=== PATIENT | male | born 1955 | race Caucasian/White ===

== ENCOUNTER 2020-09-13 18:53 | Emergency (ER) | payer MEDICARE, SELFPAY ==
[2020-09-13 18:59] VITALS: BP 127/72; PULSE 94; RESP 18; TEMP 36.6; O2SAT 99
--- NOTE | 2020-09-13 19:04 | ED.GENADULT ---
HPI - General Adult General Chief complaint: Upper Respiratory Infection Stated complaint: sinus pressure/long Time Seen by Provider: 09/13/20 19:04 Source: patient and RN notes reviewed Mode of arrival: ambulatory Limitations: no limitations History of Present Illness HPI narrative: 65-year-old male presents to the [facility] with a request to refill his prednisone. His ENT doctor in [place] prescribes him 60 mg daily for 5 days for sinus issues. States it also helps with his fatigue, has chronic fatigue issues and states he is also been referred to an ENT and neurologist. Patient currently has some congestion with a frontal sinus headache. Related Data Allergies Allergy/AdvReac Type Severity Reaction Status Date / Time No Known Allergies Allergy Verified 09/13/20 19:15 Review of Systems Review of Systems: All systems reviewed & are unremarkable except as noted in HPI and below Constitutional: Constitutional: Reports no additional constitutional complaints, Denies chills and Denies fever(s) Eyes: Eyes: Reports no additional eye complaints, Denies change in vision and Denies photophobia ENT: Reports as per HPI and Denies dizziness Comments: Frontal sinus congestion and headache Cardiovascular: Cardiovascular: Reports no additional cardiovascular complaints and Denies chest pain Respiratory: Respiratory: Reports no additional respiratory complaints, Denies chest congestion, Denies cough, Denies dyspnea and Denies wheezing Gastrointestinal: Gastrointestinal: Reports no additional gastrointestinal complaints Musculoskeletal: Musculoskeletal: Reports no additional musculoskeletal complaints Integumentary/Breasts: Skin/Breast: Reports system reviewed and no additional complaints, except as docu Neurologic: Reports system reviewed and no additional complaints, except as documented Psychiatric: Psychiatric: Reports no additional psychiatric complaints Allergic/Immunologic: Allergic/Immunologic: Reports no additional allergic/immunologic complaints PMFSH Comments At the time of my signature, I reviewed and agree with the nursing past medical, surgical, social, and family history. There is no relevant family history pertinent to the patient complaint. Exam Const: General: healthy appearing, no acute distress and alert Nutritional Appearance: well nourished Orientation/consciousness: patient oriented x3 Limitations: no limitations and altered mental status HENMT: Head: normal to inspection and No palpable skull fracture present Ears: hearing grossly normal bilaterally, external ears normal, TM's normal bilaterally and EAC's normal General nose exam: Normal external nose present, Normal nares present, Normal nasal mucous membranes and turbinates present and No nasal discharge present Face and sinus: normal facial exam, face symmetric and sinus tenderness frontal Mouth: Yes Normal oral and palatal mucosa present and Yes lip normal Throat: posterior oropharynx normal, tonsils normal and uvula midline Eyes: Conjunctivae: conjunctivae normal Pupils: Equal, round and reactive pupils present Neck: Neck: normal visual inspection, no lymphadenopathy and no meningeal signs Chest: Chest palpation & inspection: normal inspection of the chest Resp: Effort & Inspection: normal respiratory effort and no use of accessory muscles Auscultation: clear to auscultation bilaterally, no crackles, no rales, no rhonchi and no wheezes Cardio: Rate: regular rate Rhythm: regular rhythm Back/Spine/Pelvis: Back: no CVA tenderness Skin: General skin exam: normal color Rashes: no rashes Neuro: General: patient oriented x3, moves all extremities, no meningeal signs and no focal motor deficits Speech: normal speech Extrem: General: normal to inspection Psych: Appearance: grossly normal Mental Status: mental status grossly normal Affect: normal affect Attitude: cooperative Thought content: Yes Normal thought content present Course Course
== END 2020-09-13 19:40 | disposition home or self-care (01) ==
PROVIDERS: Emergency Provider Nurse Practitioner
DX: R51.9 Headache, unspecified (principal); Z76.0 Encounter for issue of repeat prescription
CPT/HCPCS: 99211; G0463

== ENCOUNTER 2020-10-02 09:45 | Outpatient (CLI) | payer MEDICARE, SELFPAY ==
--- NOTE | ~2020-10-02 | CT_ITS ---
EXAMINATION: CT sinus wo con DATE: 10/02/2020 10:13 INDICATION: Head pressure, nasal congestion TECHNIQUE: Computed tomography (CT) of the paranasal sinuses was performed without contrast. Iterativ e reconstruction technique was employed. Exam dose: 294.13 mGy-cm total exam DLP. COMPARISON: None FINDINGS: Minimal leftward bowing of the nasal septum. Bilateral nasal antral windows and partial ethmoidectomies. There is mild cystic soft tissue thickening in the left frontal sinus. The paranasal sinuses and mastoid air cells are otherwise well-developed and aerated. IMPRESSION: Bilateral nasal antral windows and partial ethmoidectomies Mild leftward bowing of the nasal septum Mild cystic soft tissue thickening in the left frontal sinus Reviewed, dictated and finalized at [facility]. Reviewed, dictated and finalized at [facility].
== END 2020-10-02 09:46 | disposition home or self-care (01) ==
PROVIDERS: Visit Provider Otolaryngology
DX: R09.81 Nasal congestion (principal); R44.8 Other symptoms and signs involving general sensations and perceptions; R51.9 Headache, unspecified; F32.9 Major depressive disorder, single episode, unspecified; R43.0 Anosmia
CPT/HCPCS: 70486

== ENCOUNTER 2020-10-24 13:14 | Emergency (ER) | payer MEDICARE, SELFPAY ==
--- NOTE | ~2020-10-24 | CT_ITS ---
EXAMINATION: CT brain wo con INDICATION: Memory loss and confusion COMPARISON: None TECHNIQUE: Standard unenhanced head CT. The dose-length product (DLP) was 605.33 mGy-cm. The mA was a djusted according to patient size. Iterative reconstruction technique was employed. FINDINGS: There is no acute intraparenchymal hemorrhage. No evidence of mass lesion. No evidence of a cute infarction. There is mild periventricular and subcortical hypodensity probably related to small vessel ischemic disease. There is mild prominence of the sulci and ventricles related to cerebral atr ophy. Intracranial calcified cerebral atherosclerosis is noted. There are no extra-axial collections. There is no mass effect or midline shift. Changes in the globes are likely from ocular lens surgery. There are fluid levels in the maxillary sinuses. IMPRESSION: 1. No acute intracranial abnormality. 2. Age related findings. Reviewed, dictated and finalized at [facility].
[2020-10-24 13:24] VITALS: BP 130/74; PULSE 87; RESP 16; TEMP 36.9; O2SAT 98
--- NOTE | 2020-10-24 13:30 | ECG_ITS ---
Measurements Intervals [place] Rate: 89 P: 67 DE: 310 QRS: 49 QRSD: 113 T: 55 QT: 397 QTc: 486 Interpretive Statements SINUS RHYTHM WITH FIRST DEGREE AV BLOCK INTRAVENTRICULAR CONDUCTION DELAY DELAYED PRECORDIAL R/S TRANSITION NONSPECIFIC ST ELEVATION IN ANTERIOR LEADS INFERIOR INFARCT, AGE INDETERMINATE ABNORMAL ECG Electronically Signed On 10-24-2020 13:41:57 CDT by Alex Ge D.O.
[2020-10-24 13:44] LABS: Basophils Percent Auto 0.3 % (0.2-1.2); Eosinophils Percent Auto 0.1 % (0-4.4); Hematocrit 44.7 % (42.0-52.0); Hemoglobin 15.3 g/dL (14.0-18.0); Immature Granulocyte Absolute 0.03 K/mm3 (0.00-0.031); Immature Granulocyte Percent A 0.3 % (0-0.5); Lymphocytes Absolute Auto 1.39 K/mm3 (0.9-3.2); Lymphocytes Percent Auto 14.9 % (18.3-44.2); Mean Corpuscular HGB Conc 34.2 g/dl (32-36); Mean Corpuscular Hemoglobin 32.2 pg (26-34); Mean Corpuscular Volume 94.1 fl (80-100); Mean Platelet Volume 9.3 fl (7.4-10.4); Monocytes Absolute Auto 0.7 K/mm3 (0.1-0.6); Monocytes Percent Auto 7.6 % (2.6-8.5); Neutrophils Absolute Auto 7.2 K/mm3 (1.3-6.7); Neutrophils Percent Auto 76.8 % (45.5-73.1); Platelet Count Result 258 k/mm3 (150-375); Red Blood Count 4.75 M/mm3 (4.6-6.20); Red Cell Distribution Width 12.4 % (11.5-14.5); White Blood Count 9.3 K/mm3 (4.5-10.0)
[2020-10-24 13:54] LABS: INR 0.9; Prothrombin Time 12.4 Seconds (11.1-14.7)
[2020-10-24 13:55] LABS: Partial Thromboplastin Time 24.5 SECONDS (22.3-36.8)
[2020-10-24 13:56] LABS: Anion Gap 7 mmol/L (8-16); Blood Urea Nitrogen 19 mg/dL (9-20); Calcium 9.3 mg/dL (8.4-10.2); Carbon Dioxide 27 mmol/L (22-30); Chloride 96 mmol/L (98-107); Estimated CRCL calculation 62 ml/min; Estimated Glomerular Filt Rate > 60; Glucose 136 mg/dL (65-110); Potassium 4.1 mmol/L (3.4-5.0); Sodium 130 mmol/L (137-145)
[2020-10-24 14:08] LABS: Troponin I < 0.012 ng/mL (0.000-0.034)
[2020-10-24 17:04] VITALS: BP 135/80; PULSE 73; TEMP 36.4; O2SAT 100
[2020-10-24 19:22] VITALS: BP 153/77; PULSE 71; RESP 16; O2SAT 98
[2020-10-24 20:18] LABS: Add Urine Microscopic? YES; Appearance Urine Clear (Clear); Bacteria Urine Trace /hpf; Bilirubin Urine Negative (Negative); Blood Urine Negative (Negative); Color Urine Yellow (Yellow); Glucose Urine UA Negative (Negative); Ketones Urine 1+ mg/dL (Negative); Leukocyte Esterase Ur Negative LEU/UL (Negative); Mucus Urine Rare /lpf; Nitrate Urine Negative (Negative); Protein Urine Negative (Negative); RBC Urine 0-2 /hpf (0-2); Specific Grav Ur 1.015 (1.001-1.035); Squamous Epithelial Cell Urine Rare /hpf (Few); Urobilinogen Urine Negative mg/dL (<2.0); WBC Urine 0-3 /hpf
--- NOTE | 2020-10-24 20:50 | ED.NEUROSD ---
HPI - Neuro Symptoms/Deficit General Chief Complaint: Neuro Symptoms/Deficit Stated Complaint: confusion Time Seen by Provider: 10/24/20 19:33 History of Present Illness HPI Narrative: Patient presents with difficulty with memory and word finding. Patient report a recent diagnosis of Parkinson's and was started on carbidopa/levodopa approximate 1 week ago. Patel has been having difficulties with memory however his symptoms seemed worse today particularly when trying to respond to questions. Family is not noted any slurred speech. Patient denies any focal numbness or weakness. Denies any headaches or changes in vision. Denies any nausea vomiting or Related Data Home Medications Medication Instructions Recorded Confirmed lisinopril 40 mg tablet 40 mg PO DAILY 09/23/20 09/23/20 venlafaxine 150 mg 150 mg PO DAILY 09/23/20 09/23/20 capsule,extended release 24 hr carbidopa-levodopa 1 tablet PO TID 10/24/20 escitalopram oxalate [Lexapro] 20 mg PO DAILY 10/24/20 Allergies Allergy/AdvReac Type Severity Reaction Status Date / Time No Known Allergies Allergy Verified 10/24/20 19:23 Review of Systems Review of Systems: CONSTITUTIONAL: Denies fever, chills, or sweats. EYES: Denies visual changes, redness, or discharge. ENT: Denies rhinorrhea, congestion, sore throat, or otalgia. CARDIOVASCULAR: Denies chest pain, palpitations, or edema. RESPIRATORY: Denies cough or dyspnea. GASTROINTESTINAL: Denies abdominal pain, nausea, vomiting, or diarrhea. GENITOURINARY: Denies dysuria or hematuria. SKIN: Denies rash or itching. MUSCULOSKELETAL: Denies back pain, joint pain, or myalgia. NEUROLOGIC: Denies headache, numbness, dizziness, or weakness. PSYCHIATRIC: Denies anxiety or depression. All systems reviewed & are unremarkable except as noted in HPI and below PMFSH Family History Family History Mother Diabetes mellitus Hypertension Sibling Alcoholism Depression Grandparent Alcoholism Social History Social History Smoking status: Never smoker Alcohol intake: current Substance use: never Substance use type: does not use Exam Narrative: GENERAL: Well-appearing, well-nourished, and in no acute distress. HEAD: Normocephalic, atraumatic. EYES: PERRLA and EOMI. ENT: Nares clear, no rhinorrhea or epistaxis. Mucous membranes moist. NECK: Supple. No masses. No JVD CHEST: Clear to auscultation. No respiratory distress. No wheezes rales or rhonchi HEART: Regular rate and rhythm. No murmur heard. Normal peripheral pulses. ABDOMEN: Soft, nontender, nondistended, normal active bowel sounds. EXTREMITIES: Normal range of motion. No edema. SKIN: Warm, dry, no rash. NEURO: 5/5 strength in all extremities sensation intact to light touch in all extremities cranial nerves II through XII intact alert and oriented x3. Resting tremor on the right upper and lower extremity PSYCH: Normal mood and affect. Course Reevaluation(s) Reevaluation #1: Case discussed with Dr. Baker, given patient's lack of focal neurological findings and recent diagnosis this may be all part of his chronic disease. Outpatient MRI and follow-up with his neurologist in the [facility] system is most appropriate. Labs imaging and plan reviewed with patient and he is comfortable with outpatient work-up Date: 10/24/20 Time: 20:44 Vital Signs Vital signs: Vital Signs Temperature 36.9 C 10/24/20 13:24 Pulse Rate 87 10/24/20 13:24 Respiratory Rate 16 10/24/20 13:24 Blood Pressure 130/74 10/24/20 13:24 Pulse Oximetry 98 10/24/20 13:24 Temperature 36.4 C 10/24/20 17:04 Pulse Rate 71 10/24/20 19:22 Respiratory Rate 16 10/24/20 19:22 Blood Pressure 153/77 H 10/24/20 19:22 Pulse Oximetry 98 10/24/20 19:22 MDM - Neuro Symptoms/Deficit MDM Narrative Medical decision making narrative: H&P as above, vss, pt looks clinically well, e
== END 2020-10-24 21:08 | disposition home or self-care (01) ==
PROVIDERS: Emergency Provider Emergency Medicine
DX: R41.841 Cognitive communication deficit (principal); G20 Parkinson's disease; Z79.899 Other long term (current) drug therapy
CPT/HCPCS: 36415; 70450; 80048; 81001; 84484; 85025; 85610; 85730; 93005; 99284

== ENCOUNTER 2022-12-14 16:15 | Emergency (ER) | payer MEDICARE, SELFPAY ==
[2022-12-14 16:26] VITALS: BP 116/69; PULSE 81; RESP 16; TEMP 36.6; O2SAT 99
--- NOTE | 2022-12-14 16:45 | ED.URI ---
HPI - URI/Sore Throat General Chief Complaint: Upper Respiratory Infection Stated Complaint: Sinus Infection Time Seen by Provider: 12/14/22 16:40 Source: patient, RN notes reviewed and old records reviewed Mode of arrival: ambulatory Limitations: no limitations History of Present Illness HPI Narrative: 67 year old male who presents to [facility] care with complaints of having sinus congestion and some drainage for over one week and took a home COVID test prior to attending function this past weekend and was negative.. Recently attended a high school golf outing this past weekend and now is feeling worse with fatigue and continued congestion, reports that he is unable to use his sinus rinse. Patient reports no known fevers,chills or sweat, denies any sore throat or ear pain. MD elicited complaint: cough, nasal congestion, sinus pain and other (fatigue) Pertinent past history: sinusitis Onset (ago): week(s) (1) Pain scale (0-10): 3 Able to tolerate fluids by mouth: Yes Treatments prior to arrival: other (nasal spray) Related Data Home Medications Medication Instructions Recorded Confirmed donepezil 5 mg tablet (Aricept) 5 mg PO QHS 05/29/21 12/14/22 venlafaxine 75 mg tablet 75 mg PO DAILY 05/29/21 12/14/22 olmesartan 40 mg tablet 40 mg PO DAILY 12/14/22 12/14/22 Allergies Allergy/AdvReac Type Severity Reaction Status Date / Time No Known Allergies Allergy Verified 12/14/22 16:37 Review of Systems Review of Systems: CONSTITUTIONAL: Denies malaise, chills, sweats, or fever. EYES: Denies visual changes, redness, or discharge. ENT: Reports rhinorrhea, congestion, sinus pain, no otalgia and no sore throat. CARDIOVASCULAR: Denies chest pain, palpitations, or edema. RESPIRATORY: Reports cough.? Denies dyspnea. GASTROINTESTINAL: Denies abdominal pain, nausea, vomiting, diarrhea SKIN: Denies rash or itching. MUSCULOSKELETAL: Denies myalgia. NEUROLOGIC:reports headache. All systems reviewed & are unremarkable except as noted in HPI and below PMFSH Past Medical History Medical History Anxiety Chronic sinusitis Hypertension Hypothyroid Parkinson disease Surgical History Surgical History (Updated 12/16/22 @ 22:38 by Latoya Lawson NP) H/O mitral valve repair Family History Family History Mother Diabetes mellitus Hypertension Sibling Alcoholism Depression Grandparent Alcoholism Social History Social History Smoking status: Never smoker Alcohol intake: current Substance use: never Substance use type: does not use Comments At time of signature, agree with nursing past medical, surgical, social and family history. There is no relevant family history pertinent to the presenting complaint Exam Narrative: GENERAL: Well-appearing, well-nourished, and in no acute distress. HEAD: Normocephalic EYES: PERRLA, conjunctivae clear ENT: Nares clear, turbinates edematous and erythematous, clear discharge, sinus pressure and pain, headache. Mucous membranes moist. TM pearly fountain with dull light reflex bilaterally; no tragal tenderness. Oropharynx erythematous without lesions. Tonsils not enlarged and without exudate, no drooling, no hoarseness, no trismus, uvula midline. NECK: Supple. No lymphadenopathy CHEST: Clear to auscultation, breath sounds equal. No wheezing, rhonchi, rales, or stridor. No respiratory distress, speaks in full sentences.cough dry, SAO2 99% on room air HEART: Regular rate and rhythm. No murmur heard. SKIN: Warm, dry, no rash. NEURO: Alert and oriented x3. PSYCH: Normal mood and affect Course Course Emergency Course: Patient is aware of diagnosis, understands and agrees to treatment plan.? Anticipatory guidance given.? Patient agrees to follow-up as directed and is aware of reasons
== END 2022-12-14 17:06 | disposition home or self-care (01) ==
PROVIDERS: Emergency Provider Registered Nurse; PCP Family Medicine
DX: J06.9 Acute upper respiratory infection, unspecified (principal); I10 Essential (primary) hypertension; E03.9 Hypothyroidism, unspecified; G20.A1 Parkinson's disease without dyskinesia, without mention of fluctuations; Z79.899 Other long term (current) drug therapy; Z20.822 Contact with and (suspected) exposure to COVID-19
CPT/HCPCS: 87426; 87804; 99213; C9803; G0463